=== PATIENT | male | born 1990 | race Caucasian/White ===

== ENCOUNTER 2018-06-23 10:06 | Emergency (ER) | payer SELFPAY ==
[~2018-06-23] VITALS: Ht 170.2 cm; Wt 70.3 kg
[2018-06-23 10:15] VITALS: BP_SYST 117
--- NOTE | 2018-06-23 10:16 | NUR ---
Patient to ER [facility] to [facility] for evaluation. Side rails up. Report given to Jenifer TELLEZ.
--- NOTE | 2018-06-23 10:18 | NUR ---
Patient was brought in, in custody of [facility] with compliant of vomiting 10 times last night after not using heroin for the last 4 days. Reports that he is passing flatus.
--- NOTE | 2018-06-23 10:19 | NUR ---
[facility] discharged patient from custody. Patient immediately LWBS.
== END 2018-06-23 10:19 | disposition left against medical advice (07) ==
LOC: SED 10:06
DX: R11.10 Vomiting, unspecified (principal); Z53.21 Procedure and treatment not carried out due to patient leaving prior to being seen by health care provider